=== PATIENT | female | born 1990 | race African-American/Black ===

== ENCOUNTER 2017-08-16 19:17 | Emergency (ER) | payer MEDICAID ==
[~2017-08-16] VITALS: Ht 165.1 cm; Wt 71.0 kg
[~2017-08-16 19:17] MED LIST: HYDR-3498 PO; HYDR-3720 PO; IBUP-1542 PO; NITR-58 PO; OMEP20CA9 PO
[2017-08-16 19:39] VITALS: Ht 165.1 cm; Wt 71.0 kg
[2017-08-16] MEDS ORDERED: DICYCLOMINE 10 MG CAP PO ONE (22:30)
[2017-08-16 22:39] LABS: URINE BLOOD (Dip) POC 1+ (NEGATIVE)
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
[2017-08-16] MEDS ORDERED: TRAM50TA2 PO (23:06)
[2017-08-16] MEDS ORDERED: IBUP-1542 PO (23:06)
[2017-08-16] MEDS ORDERED: DICY10CA60 PO (23:06)
[2017-08-16 23:21] VITALS: BP 136/85; PULSE 78; RESP 16
== END 2017-08-16 23:22 | disposition home or self-care (01) ==
LOC: FTE 19:17
DX: A08.4 Viral intestinal infection, unspecified (principal); F17.210 Nicotine dependence, cigarettes, uncomplicated
CPT/HCPCS: 81003; Z7502; Z7610; 99284

== ENCOUNTER 2017-10-27 13:12 | Emergency (ER) | payer SELFPAY ==
[~2017-10-27] VITALS: Wt 89.0 kg
[~2017-10-27 13:12] MED LIST changes: +DICY10CA60 PO; +TRAM50TA2 PO
[2017-10-27] MEDS ORDERED: IBUPROFEN 600 MG TAB PO ONE (16:30)
[2017-10-27] MEDS ORDERED: ACETAMINOPHEN 325 MG TAB PO ONE (17:00)
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
[2017-10-27] MEDS ORDERED: TYL500 PO (17:55)
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
[2017-10-27 18:52] VITALS: BP 140/85; PULSE 66; RESP 18; TEMP 98.4
== END 2017-10-27 18:40 | disposition home or self-care (01) ==
LOC: FTE 13:12
DX: S00.33XA Contusion of nose, initial encounter (principal); F17.210 Nicotine dependence, cigarettes, uncomplicated; W50.1XXA Accidental kick by another person, initial encounter; Y92.9 Unspecified place or not applicable
CPT/HCPCS: 70160; 99283

== ENCOUNTER 2018-10-03 14:29 | Emergency (ER) | END 2018-10-03 16:00 | disposition home or self-care (01) ==

== ENCOUNTER 2018-10-12 08:16 | Emergency (ER) | END 2018-10-12 08:54 | disposition home or self-care (01) ==

== ENCOUNTER 2018-10-20 12:25 | Emergency (ER) | payer OTHER ==
[~2018-10-20] VITALS: Ht 167.6 cm; Wt 75.9 kg
[~2018-10-20 12:25] MED LIST changes: +ACET325T33 PO; +ACET500C5 PO; +AMOX500C2 PO; +CYCL10TA7 PO; +DICY10CA40 PO; -DICY10CA60 PO; +TYL500 PO
[2018-10-20 12:26] VITALS: BP 161/91; PULSE 91; RESP 16; Ht 167.6 cm; Wt 75.9 kg
--- NOTE | 2018-10-20 16:14 | ERD ---
ER Documentation Chief Complaint Chief Complaint pt bib self with c/o "bump on forehead" noticed it last night, HPI 28-year-old female patient with no significant past medical history presents to the ED complaining of a swollen bump on her forehead she noticed last night. Patient reports that she started to notice it on her forehead. Denies any head or neck injuries. Denies any fever, chills, nausea, vomiting, diarrhea, neck stiffness. ROS All systems reviewed and are negative except as per history of present illness. Medications Home Meds Active Scripts Acetaminophen* (Tylophen*) 500 Mg Capsule, 1 CAP PO Q6H PRN for PAIN AND OR ELEVATED TEMP, #20 CAP Prov:SIVA MATA PA-C 10/12/18 Amoxicillin* (Amoxicillin*) 500 Mg Cap, 500 MG PO BID for 10 Days, CAP Prov:SIVA MATA PA-C 10/12/18 Cyclobenzaprine Hcl* (Cyclobenzaprine Hcl*) 10 Mg Tablet, 10 MG PO TID, #30 TAB Prov:RISHABH MARTINEZ PA-C 10/03/18 Acetaminophen* (Tylenol*) 325 Mg Tablet, 2 TAB PO Q6 PRN for PAIN AND OR ELEVATED TEMP, #30 TAB Prov:RISHABH MARTINEZ PA-C 10/03/18 Acetaminophen* (Tylenol*) 500 Mg Tab, 500 MG PO Q4H PRN for MILD PAIN LEVEL 1-3 for 3 Days, TAB Prov:RINKU JASSO 10/27/17 Tramadol HCl (Tramadol HCl) 50 Mg Tablet, 50 MG PO Q6 PRN for SEVERE PAIN LEVEL 7-10, #20 TAB Prov:RAFY SIU NP 08/16/17 Ibuprofen* (Motrin*) 600 Mg Tab, 600 MG PO Q6H PRN for PAIN AND OR ELEVATED TEMP, #30 TAB Prov:RAFY SIU NP 08/16/17 Dicyclomine HCl (Dicyclomine HCl) 10 Mg Capsule, 10 MG PO QID, #20 CAP Prov:RAFY SIU NP 08/16/17 Omeprazole* (Prilosec*) 20 Mg Capsule.dr, 20 MG PO DAILY, #20 CAP Prov:RASHAWN WEINER. DO 02/23/16 Hydrocodone Bit-Acetaminophen* ([place]*) 7.5-325 Tablet, 2 TAB PO Q4H PRN for PAIN, #20 TAB Prov:RASHAWN WEINER. DO 02/23/16 Ibuprofen* (Ibuprofen*) 600 Mg Tablet, 600 MG PO Q6 for PAIN, #30 TAB Prov:PDAMAJA MERAZ SHAYE 06/09/15 Hydrocodone Bit-Acetaminophen* ([place]*) 5-325 Mg Tab, 1 TAB PO Q4H PRN for PAIN, #20 TAB Prov:PADMAJA MERAZ ROLY-C 06/09/15 Nitrofurantoin Monohyd Macrocr* (Macrobid*) 100 Mg Capsr, 100 MG PO BID for 5 Days, CAP Prov:PADMAJA MERAZ ROLY-C 06/09/15 Allergies Allergies: Coded Allergies: sulfamethoxazole (Verified Allergy, Unknown, 10/20/18) trimethoprim (Verified Allergy, Unknown, 10/20/18) PMhx/Soc History of Surgery: Yes (CYST RT HAND) Anesthesia Reaction: No Hx Neurological Disorder: No Hx Respiratory Disorders: No Hx Cardiac Disorders: No Hx Psychiatric Problems: No Hx Miscellaneous Medical Probl: No Hx Alcohol Use: Yes (social) Hx Substance Use: No Hx Tobacco Use: Yes (1/2 pack/ day) Smoking Status: Never smoker FmHx Family History: No diabetes, No coronary disease Physical Exam Vitals Vital Signs Date Temp Pulse Resp B/P (MAP) Pulse Ox O2 O2 Flow FiO2 Time Delivery Rate 10/20/18 99.2 91 16 161/91 100 12:26 (114) Physical Exam Const: [id number], well-nourished. In no acute distress. Head: Atraumatic, normocephalic. No hematoma. No price sign. No raccoon eyes. Skin colored nonspecific lump noted on forehead. Eyes: Normal Conjunctiva without injection. No purulent discharge. PERRLA. EOMI ENT: Normal external ear. Ear canal without erythema. Tympanic membrane pearly solis without effusion or bulging. No hemotympanum. Nasal canal clear with normal turbinates. Moist oropharynx without tonsillar exudates. Non-erythematous pharynx. Uvula midline. No drooling. No trismus. Neck: No cervical midline tenderness. Full range of motion. No meningismus. No cervical lymphadenopathy. No JVD. Resp: Clear to auscultation bilaterally. No wheezing, rhonchi, rales, or crackles. No accessory muscle use. No retractions. Cardio: Regular rate and rhythm. No murmurs, rubs or gallops. Abd: Soft, non tender, non distended. Normal bowel sounds. No palpable masses. No rebound tenderness. No guarding. Negative McBurney's Point. Negative Tovar's Sign. Skin: Normal skin turgor. No petechiae or rashes Back: No midline tenderness. No CVA tenderness. Ext: No cyanosis, or edema. Distal pulses intact bilaterally. Neur: Awake and alert. Normal gait. Normal coordination. Cranial Nerves II- VII intact. Normal finger to nose. Muscle strength 5/5. Sensation intact. Psych: Normal Mood and Affect Procedures/MDM 28-year-old female patient with no significant past medical history presents to the ED complaining of a bump on her forehead she noticed last night. Patient is neurovascularly Patient's blood pressure is 161/91. Blood Pressure Assessment: Patient's blood pressure was elevated (>120/80) but appears stable without evidence of hypertension emergency or urgency. The patient was counseled about the risks of hypertension and urged to pursue outpatient monitoring and therapy within a week with their primary care physician. Since lump on her forehead is nonspecific at this time. Patient's forehead looks like a contusion. Low suspicion for abscess, deep space infection or other emergent conditions. Low suspicion for intracranial bleed, subarachnoid hemorrhage, meningitis, TIA, stroke, subdural hematoma, epidural hematoma, or other emergent conditions. Diagnosis: Lump on face Follow up with primary care physician in 1-2 days. Instructed patient to return to the ED sooner for any worsening symptoms. Patient's questions were answered. Patient is hemodynamically stable. Patient understood and agreed with discharge plan. Patient discharged stable. Disclaimer: Inadvertent spelling and grammatical errors are likely due to EHR/dictation software use and do not reflect on the overall quality of patient care. Also, please note that the electronic time recorded on this note does not necessarily reflect the actual time of the patient encounter. Departure Diagnosis: Primary Impression: Lump on face Condition: Stable Referrals: COMMUNITY CLINICS YOU HAVE RECEIVED A MEDICAL SCREENING EXAM AND THE RESULTS INDICATE THAT YOU DO NOT HAVE A CONDITION THAT REQUIRES URGENT TREATMENT IN THE EMERGENCY DEPARTMENT. FURTHER EVALUATION AND TREATMENT OF YOUR CONDITION CAN WAIT UNTIL YOU ARE SEEN IN YOUR DOCTORS OFFICE WITHIN THE NEXT 1-2 DAYS. IT IS YOUR RESPONSIBILITY TO MAKE AN APPOINTMENT FOR FOLOW-UP CARE. IF YOU HAVE A PRIMARY DOCTOR --you should call your primary doctor and schedule an appointment IF YOU DO NOT HAVE A PRIMARY DOCTOR YOU CAN CALL OUR PHYSICIAN REFERRAL HOTLINE AT IF YOU CAN NOT AFFORD TO SEE A PHYSICIAN YOU CAN CHOSE FROM THE FOLLOWING [facility] [address] [facility] [address] [facility] [facility] [address] [facility] [facility] [address] [facility] [address] [facility]. [facility] [address] [facility]. [facility] YOU HAVE RECEIVED A MEDICAL SCREENING EXAM AND THE RESULTS INDICATE THAT YOU DO NOT HAVE A CONDITION THAT REQUIRES URGENT TREATMENT IN THE EMERGENCY DEPARTMENT. FURTHER EVALUATION AND TREATMENT OF YOUR CONDITION CAN WAIT UNTIL YOU ARE SEEN IN YOUR DOCTORS OFFICE WITHIN THE NEXT 1-2 DAYS. IT IS YOUR RESPONSIBILITY TO MAKE AN APPOINTMENT FOR FOLOW-UP CARE. IF YOU HAVE A PRIMARY DOCTOR --you should call your primary doctor and schedule and appointment IF YOU DO NOT HAVE A PRIMARY DOCTOR YOU CAN CALL OUR PHYSICIAN REFERRAL HOTLINE AT . IF YOU CAN NOT AFFORD TO SEE A PHYSICIAN YOU CAN CHOSE FROM THE FOLLOWING [facility]: [facility] [address] [place] [address] [facility] [address] [place] [address] [facility] [address] [place] [address] [facility] Additional Instructions: It does not appear that you have an infection or abscess to your forehead. Ice recommended. Call your primary care doctor TOMORROW for an appointment during the next 2-3 days.See the doctor sooner or return here if your condition worsens before your appointment time. SIVA MATA PA-C Oct 20, 2018 16:14
== END 2018-10-20 16:07 | disposition left against medical advice (07) ==
LOC: FTE 12:25
DX: R22.0 Localized swelling, mass and lump, head (principal)
CPT/HCPCS: 99282

== ENCOUNTER 2018-12-20 08:55 | Emergency (ER) | payer OTHER ==
[~2018-12-20] VITALS: Ht 167.6 cm; Wt 77.6 kg
[2018-12-20 09:20] VITALS: BP 133/67; PULSE 91; RESP 18; Ht 167.6 cm; Wt 77.6 kg
[2018-12-20] MEDS ORDERED: ONDANSETRON (ODT) 4 MG TAB ODT STA (09:46)
[2018-12-20] MEDS ORDERED: ACETAMINOPHEN 500 MG TAB PO STA (09:46)
[2018-12-20] MEDS ORDERED: FAMO-96 PO (11:04)
[2018-12-20] MEDS ORDERED: HYDR-4011 PO (11:04)
--- NOTE | 2018-12-20 13:18 | ERD ---
ER Documentation Chief Complaint Chief Complaint upper abdominal pain x 3 weeks HPI 28-year-old female presenting with epigastric pain times 2 weeks. She states that with the constant pain she has not taken medications. Denies vomiting. Denies chest pain or shortness of breath. Stated that started yesterday. Medical history is gastritis. Allergies to Bactrim. Surgical history is hand surgery. Social history smokes occasionally. ROS All systems reviewed and are negative except as per history of present illness. Medications Home Meds Active Scripts Famotidine* (Pepcid*) 20 Mg Tablet, 20 MG PO BID for 4 Days, #30 TAB Prov:GAURANG NIELSEN PA-C 12/20/18 Hydrocodone/Acetaminophen ([place] 5-325 Tablet) 1 Each Tablet, 1 TAB PO Q6H PRN for PAIN, #7 TAB Prov:GAURANG NIELSEN PA-C 12/20/18 Acetaminophen* (Tylophen*) 500 Mg Capsule, 1 CAP PO Q6H PRN for PAIN AND OR ELEVATED TEMP, #20 CAP Prov:SIVA MATA PA-C 10/12/18 Amoxicillin* (Amoxicillin*) 500 Mg Cap, 500 MG PO BID for 10 Days, CAP Prov:SIVA MATA PA-C 10/12/18 Cyclobenzaprine Hcl* (Cyclobenzaprine Hcl*) 10 Mg Tablet, 10 MG PO TID, #30 TAB Prov:RISHABH MARTINEZ PA-C 10/03/18 Acetaminophen* (Tylenol*) 325 Mg Tablet, 2 TAB PO Q6 PRN for PAIN AND OR ELEVATED TEMP, #30 TAB Prov:RISHABH MARTINEZ PA-C 10/03/18 Acetaminophen* (Tylenol*) 500 Mg Tab, 500 MG PO Q4H PRN for MILD PAIN LEVEL 1-3 for 3 Days, TAB Prov:RINKU JASSO 10/27/17 Tramadol HCl (Tramadol HCl) 50 Mg Tablet, 50 MG PO Q6 PRN for SEVERE PAIN LEVEL 7-10, #20 TAB Prov:RAFY SIU NP 08/16/17 Ibuprofen* (Motrin*) 600 Mg Tab, 600 MG PO Q6H PRN for PAIN AND OR ELEVATED TEMP, #30 TAB Prov:RAFY SIU NP 08/16/17 Dicyclomine HCl (Dicyclomine HCl) 10 Mg Capsule, 10 MG PO QID, #20 CAP Prov:RAFY SIU NP 08/16/17 Omeprazole* (Prilosec*) 20 Mg Capsule.dr, 20 MG PO DAILY, #20 CAP Prov:LEKKOS,APOSTOLOS A. DO 02/23/16 Hydrocodone Bit-Acetaminophen* ([place]*) 7.5-325 Tablet, 2 TAB PO Q4H PRN for PAIN, #20 TAB Prov:LEKKOS,APOSTOLOS A. DO 02/23/16 Ibuprofen* (Ibuprofen*) 600 Mg Tablet, 600 MG PO Q6 for PAIN, #30 TAB Prov:PADMAJA MERAZ PA-C 06/09/15 Hydrocodone Bit-Acetaminophen* ([place]*) 5-325 Mg Tab, 1 TAB PO Q4H PRN for PAIN, #20 TAB Prov:PADMAJA MERAZ PA-C 06/09/15 Nitrofurantoin Monohyd Macrocr* (Macrobid*) 100 Mg Capsr, 100 MG PO BID for 5 Days, CAP Prov:PADMAJA MERAZC 06/09/15 Allergies Allergies: Coded Allergies: sulfamethoxazole (Verified Allergy, Unknown, 12/20/18) trimethoprim (Verified Allergy, Unknown, 10/20/18) PMhx/Soc Medical and Surgical Hx: pt denies Medical Hx, pt denies Surgical Hx History of Surgery: Yes (CYST RT HAND) Anesthesia Reaction: No Hx Neurological Disorder: No Hx Respiratory Disorders: No Hx Cardiac Disorders: No Hx Psychiatric Problems: No Hx Miscellaneous Medical Probl: No Hx Alcohol Use: Yes (social) Hx Substance Use: No Hx Tobacco Use: Yes (1/2 pack/ day) FmHx Family History: No diabetes, No coronary disease, No other Physical Exam Vitals Vital Signs Date Temp Pulse Resp B/P (MAP) Pulse Ox O2 O2 Flow FiO2 Time Delivery Rate 12/20/18 97.7 91 18 133/67 100 09:20 (89) Physical Exam GENERAL: The patient is well-appearing, well-nourished, in no acute distress HEENT: Atraumatic. Conjunctivae are pink. Pupils equal, round, and reactive to light. There is no scleral icterus. Tympanic membranes clear bilaterally. John pharynx clear. CHEST: Clear to auscultation bilaterally. There are no rales, wheezes or rhonchi. HEART: Regular rate and rhythm. No murmurs, clicks, rubs or gallops. ABDOMEN: Normal active bowel sounds. No distention. No organomegaly. Tender palpation in the epigastric region. Result Diagram: 12/20/18 1001 12/20/18 1001 Results 24 hrs Laboratory Tests Test 12/20/18 09:54 12/20/18 10:01 Urine Color YELLOW Urine Clarity SLIGHTLY CLOUDY Urine pH 5.0 Urine Specific [place] 1.011 Urine Ketones NEGATIVE mg/dL Urine Nitrite NEGATIVE mg/dL Urine Bilirubin NEGATIVE mg/dL Urine Urobilinogen NEGATIVE mg/dL Urine Leukocyte Esterase NEGATIVE T[place]y/ul Urine Microscopic RBC 1 /HPF Urine Microscopic WBC 3 /HPF Urine Squamous Epithelial Cells FEW /HPF Urine Bacteria FEW /HPF Urine Mucus FEW /HPF Urine Hemoglobin 1+ mg/dL Urine Glucose NEGATIVE mg/dL Urine Total Protein NEGATIVE mg/dl White Blood Count 5.6 10^3/ul Red Blood Count 4.57 10^6/ul Hemoglobin 13.1 g/dl Hematocrit 41.1 % Mean Corpuscular Volume 89.9 fl Mean Corpuscular Hemoglobin 28.7 pg Mean Corpuscular Hemoglobin Concent 31.9 g/dl Red Cell Distribution Width 15.5 % Platelet Count 235 10^3/UL Mean Platelet Volume 10.3 fl Immature Granulocytes % 0.500 % Neutrophils % 54.4 % Lymphocytes % 36.1 % Monocytes % 6.5 % Eosinophils % 1.8 % Basophils % 0.7 % Nucleated Red Blood Cells % 0.0 /100WBC Immature Granulocytes # 0.030 10^3/ul Neutrophils # 3.0 10^3/ul Lymphocytes # 2.0 10^3/ul Monocytes # 0.4 10^3/ul Eosinophils # 0.1 10^3/ul Basophils # 0.0 10^3/ul Nucleated Red Blood Cells # 0.0 10^3/ul Sodium Level 143 mmol/L Potassium Level 4.1 mmol/L Chloride Level 102 mmol/L Carbon Dioxide Level 29 mmol/L Anion Gap 12 Blood Urea Nitrogen 13 mg/dl Creatinine 0.83 mg/dl Est Glomerular Filtrat Rate mL/min > 60 mL/min Glucose Level 75 mg/dl Calcium Level 9.4 mg/dl Total Bilirubin 0.2 mg/dl Direct Bilirubin 0.00 mg/dl Indirect Bilirubin 0.2 mg/dl Aspartate Amino Transf (AST/SGOT) 21 IU/L Alanine Aminotransferase (ALT/SGPT) 26 IU/L Alkaline Phosphatase 42 IU/L Total Protein 7.7 g/dl Albumin 4.4 g/dl Globulin 3.30 g/dl Albumin/Globulin Ratio 1.33 Lipase 78 U/L POC Beta HCG, Qualitative NEGATIVE Current Medications Medications Dose Sig/Mary Start Time Status Last (Trade) Ordered Route PRN Stop Time Admin Dose Reason Admin 1,000 mg ONCE STAT 12/20/18 DC 12/20/18 Acetaminophen PO 09:46 10:00 (Tylenol 12/20/18 09:47 Tab) Ondansetron 4 mg ONCE STAT 12/20/18 DC 12/20/18 HCl (Zofran ODT 09:46 10:00 Odt) 12/20/18 09:47 Procedures/MDM DIAGNOSTIC IMAGING REPORT Patient: DUTCHESS BRITTNEY : 1990 Age: 28 Sex: F MR #: [id number] DOS: 12/20/18 0946 Ordering MD: VERONICA NIELSEN PA-C Location: [facility] Room/Bed: PROCEDURE: US Abdomen (right upper quadrant). CLINICAL INDICATION: Abdominal pain TECHNIQUE: Multiple real-time longitudinal and transverse images of the right upper quadrant of the abdomen were acquired utilizing a curved array transducer. Images were reviewed on a high-resolution PACS workstation. COMPARISON: 02/23/2016 FINDINGS: The liver is normal in size and echogenicity without focal mass or intrahepatic biliary dilatation. The gallbladder is normal. There is no pericholecystic fluid or gallbladder wall thickening or gallstones. No intra or extrahepatic biliary dilatation is seen. The common bile duct measures 2.7 mm in maximal dimension. The visualized portions of the pancreas are unremarkable with obscuration of the tail of the pancreas. No free fluid is identified. The right kidney measures 9.9 cm in length. There is normal echogenicity within the right kidney. There is no perinephric fluid collection. No hydronephrosis, mass, or calculus is seen. IMPRESSION: Unremarkable right upper quadrant ultrasound. MDM: 28-year-old female presenting with epigastric pain. I have low suspicion for choledocholithiasis, cholecystitis or cholangitis. I have low suspicion for pancreatitis. I have low suspicion for cardiac or pulmonary emergency. Patient likely has irritation in the epigastric region due to gastritis and will be discharged with supportive medications. Patient is told symptoms change or worsen to return immediately to the ER. All questions answered at discharge Departure Diagnosis: Primary Impression: Epigastric pain Condition: Stable Patient Instructions: Epigastric Pain (Uncertain Cause) Referrals: [facility] YOU HAVE RECEIVED A MEDICAL SCREENING EXAM AND THE RESULTS INDICATE THAT YOU DO NOT HAVE A CONDITION THAT REQUIRES URGENT TREATMENT IN THE EMERGENCY DEPARTMENT. FURTHER EVALUATION AND TREATMENT OF YOUR CONDITION CAN WAIT UNTIL YOU ARE SEEN IN YOUR DOCTORS OFFICE WITHIN THE NEXT 1-2 DAYS. IT IS YOUR RESPONSIBILITY TO MAKE AN APPOINTMENT FOR FOLOW-UP CARE. IF YOU HAVE A PRIMARY DOCTOR --you should call your primary doctor and schedule an appointment IF YOU DO NOT HAVE A PRIMARY DOCTOR YOU CAN CALL OUR PHYSICIAN REFERRAL HOTLINE AT IF YOU CAN NOT AFFORD TO SEE A PHYSICIAN YOU CAN CHOSE FROM THE FOLLOWING [facility] [address] [facility] [address] [facility] [facility] [address] [facility] [address] [facility] [address] [facility] [facility]. [address] Additional Instructions: FOLLOW UP WITH YOUR PRIMARY CARE PHYSICIAN TOMORROW.Return to this facility if you are not improving as expected. GAURANG NIELSEN PA-C Dec 20, 2018 13:18
== END 2018-12-20 11:41 | disposition home or self-care (01) ==
LOC: FTE 08:55
DX: R10.13 Epigastric pain (principal); Z87.891 Personal history of nicotine dependence
CPT/HCPCS: 36415; 76705; 80053; 81001; 81025; 83690; 85025; Z7502; Z7610